=== PATIENT | female | born 1955 | race Caucasian/White ===

== ENCOUNTER → 2025-07-19 07:50 | Outpatient (CLI) | payer MEDICARE, SELFPAY ==
[2025-07-19 08:30] LABS: Add Manual Diff / Slide Review NO; Hematocrit 41.0 % (36-46); Hemoglobin 13.4 g/dL (12.0-16.0); Lymphocytes Absolute Auto 1500 /uL (1100-4500); Mean Corpuscular HGB Conc 32.7 % (30-36); Mean Corpuscular Hemoglobin 28.7 PG (26-34); Mean Corpuscular Volume 87.8 fL (80-100); Platelet Count 390 X10^3/uL (150-400)
[2025-07-19 08:41] LABS: HEMOLYSIS < 15 (0-50); Iron 39 ug/dL (37-170)
[2025-07-19 08:44] LABS: Alanine Aminotransferase 64 IU/L (<35); Albumin 4.1 g/dL (3.5-5.0); Albumin Globulin Ratio 1.5 (1.0-2.8); Alkaline Phosphatase 85 U/L (38-126); Blood Urea Nitrogen 16 mg/dL (7-17); Calcium 9.8 mg/dL (8.4-10.2); Carbon Dioxide 29 mmol/L (22-32); Chloride 105 mmol/L (98-107); Estimated Glomerular Filt Rate > 60 mL/min (>60); Globulin 2.8 g/dL (1.7-4.1); Glucose 113 mg/dL (70-99); HEMOLYSIS < 15 (0-50); Potassium 4.9 mmol/L (3.4-5.1); Sodium 141 mmol/L (137-145); Total Protein 6.9 g/dL (6.3-8.2)
[2025-07-19 08:52] LABS: Percent Iron Saturation 10 % (15-50); Total Iron Binding Capacity 391 ug/dL (265-497); Transferrin 336 mg/dL (206-381)
[2025-07-19 08:59] LABS: Progesterone, Total 1.60 ng/mL
[2025-07-19 09:15] LABS: Estradiol, Total 58.4 pg/mL
[2025-07-19 09:18] LABS: Ferritin 11 ng/mL (11-264)
== END ==
PROVIDERS: PCP Family Medicine; Referring Provider Specialist; Visit Provider Specialist
DX: D50.9 Iron deficiency anemia, unspecified (principal); N95.9 Unspecified menopausal and perimenopausal disorder; R53.83 Other fatigue; Z51.81 Encounter for therapeutic drug level monitoring
CPT/HCPCS: 36415; 80053; 82670; 82728; 83540; 83550; 84144; 84403; 85025